=== PATIENT | female | born 1970 | race Caucasian/White ===

== ENCOUNTER 2016-11-14 11:20 | Emergency (ER) | payer SELFPAY ==
--- NOTE | 2016-11-14 11:50 | ER Document Report ---
ED Medical Screen (RME) - General Stated Complaint: COUGH,CONGESTION,BACK PAIN Notes: Patient is a 46-year-old female presents emergency Department complaining of nonproductive cough started Thursday. Now with back pain, chest pain, abdominal pain from coughing Patient is a tobacco user Denies any history of asthma. I have greeted and performed a rapid initial assessment of this patient. A comprehensive ED assessment and evaluation of the patient, analysis of test results and completion of the medical decision making process will be conducted by additional ED providers. - Related Data Allergies/Adverse Reactions: No Known Allergies Allergy (Verified 11/14/16 11:48) Past Medical History - Past Medical History Cardiac Medical History: Reports: Hx Hypertension Past Surgical History: Reports: Hx Bowel Surgery - upper and lower endoscopy 2012, Hx Hysterectomy Physical Exam - Vital signs Vitals: Temp Pulse Resp BP Pulse Ox 99.7 F 102 H 21 H 142/91 H 94 11/14/16 11:24 11/14/16 11:24 11/14/16 11:24 11/14/16 11:24 11/14/16 11:24 Course - Vital Signs Vital signs: Temp Pulse Resp BP Pulse Ox 99.7 F 102 H 21 H 142/91 H 94 11/14/16 11:24 11/14/16 11:24 11/14/16 11:24 11/14/16 11:24 11/14/16 11:24
[2016-11-14] MEDS ORDERED: IPRATROPIUM/ALBUTEROL 0.5-2.5 MG/3 ML AMPUL NEB ONE (11:51)
[2016-11-14] MEDS ORDERED: ACETAMINOPHEN 325 MG TABLET PO ONE (11:51)
--- NOTE | 2016-11-14 13:14 | ER Document Report ---
ED Respiratory Problem - General Chief Complaint: Cough Stated Complaint: COUGH,CONGESTION,BACK PAIN Time seen by provider: 13:12 Mode of Arrival: Ambulatory Information source: Patient - HPI Patient complains to provider of: Cough - pt with c/o cough productive of white sputum with occasional wheeze for the past for the past 1-2 days . Plus CP with cough. Pt continues to smoke. Denies fever - Related Data Allergies/Adverse Reactions: No Known Allergies Allergy (Verified 11/14/16 11:48) Past Medical History - General Information source: Patient - Social History Smoking Status: Current Every Day Smoker Cigarette use (# per day): Yes Chew tobacco use (# tins/day): Yes Smoking Education Provided: Yes Family History: None Patient has suicidal ideation: No Patient has homicidal ideation: No - Past Medical History Cardiac Medical History: Reports: Hx Hypertension Renal/ Medical History: Denies: Hx Peritoneal Dialysis Past Surgical History: Reports: Hx Bowel Surgery - upper and lower endoscopy 2012, Hx Hysterectomy, Hx Tonsillectomy - Immunizations Hx Diphtheria, Pertussis, Tetanus Vaccination: Yes Review of Systems - Review of Systems Constitutional: No symptoms reported Cardiovascular: Chest pain Respiratory: Cough Gastrointestinal: No symptoms reported Neurological/Psychological: No symptoms reported -: Yes All other systems reviewed and negative Physical Exam - Vital signs Vitals: Temp Pulse Resp BP Pulse Ox 99.7 F 102 H 21 H 142/91 H 94 11/14/16 11:24 11/14/16 11:24 11/14/16 11:24 11/14/16 11:24 11/14/16 11:24 - General General appearance: Appears well In distress: None - HEENT Head: Normocephalic Pharynx: Normal Neck: Normal - Respiratory Respiratory status: No respiratory distress Chest status: Nontender Breath sounds: Normal - Cardiovascular Rhythm: Regular Heart sounds: Normal auscultation Course - Re-evaluation Re-evalutation: 11/14/16 13:30 Pt. felt much better at time of d/c --expressed desire to go home - Vital Signs Vital signs: Temp Pulse Resp BP Pulse Ox 99.7 F 102 H 21 H 142/91 H 94 11/14/16 11:24 11/14/16 11:24 11/14/16 11:24 11/14/16 11:24 11/14/16 11:24 - Diagnostic Test Radiology reviewed: Reports reviewed - neg Discharge - Discharge Clinical Impression: Bronchitis Condition: Stable Disposition: HOME, SELF-CARE Additional Instructions: rest, take meds as prescribed, stop smoking, return if worse Prescriptions: Azithromycin [Zithromax Tri-Trung] 500 mg PO DAILY #1 pkg Referrals: MONTANA MA MD [ACTIVE STAFF] - Follow up as needed
[2016-11-14 13:57] VITALS: BP 138/89
== END 2016-11-14 13:45 | disposition home or self-care (01) ==
LOC: ER 11:20
DX: J40 Bronchitis, not specified as acute or chronic (principal); R05 Cough; R06.2 Wheezing; R07.9 Chest pain, unspecified; I10 Essential (primary) hypertension; F17.210 Nicotine dependence, cigarettes, uncomplicated; Z71.6 Tobacco abuse counseling
CPT/HCPCS: 94640; 99283; 71020; J7620

== ENCOUNTER 2017-05-11 01:49 | Emergency (ER) | payer SELFPAY ==
--- NOTE | 2017-05-11 03:17 | ER Document Report ---
ED General - General Chief Complaint: Back Pain Stated Complaint: FLANK PAIN Time Seen by Provider: 05/11/17 02:52 Notes: Patient is a 46-year-old female who comes emergency department for chief complaint of pain in her back on the left side, she states the area feels like a band that itches, hurts, and will not go away. This started several days ago. She denies injury to the area, she denies that it is worse with movement, she denies nausea, vomiting, fever, chills, dysuria, or any urinary symptoms. She denies history of the same. She has been taking ibuprofen. Only past medical history is hysterectomy, tonsillectomy, and when asked she does confirm that she did have chickenpox as a child. TRAVEL OUTSIDE OF THE [place] IN LAST 30 DAYS: No - Related Data Allergies/Adverse Reactions: No Known Allergies Allergy (Verified 11/14/16 11:48) Past Medical History - General Information source: Patient - Social History Smoking Status: Never Smoker Frequency of alcohol use: None Drug Abuse: None Lives with: Family Family History: None - Past Medical History Cardiac Medical History: Reports: Hx Hypertension Renal/ Medical History: Denies: Hx Peritoneal Dialysis Past Surgical History: Reports: Hx Bowel Surgery - upper and lower endoscopy 2012, Hx Hysterectomy, Hx Tonsillectomy - Immunizations Hx Diphtheria, Pertussis, Tetanus Vaccination: Yes Review of Systems - Review of Systems Constitutional: No symptoms reported EENT: No symptoms reported Cardiovascular: No symptoms reported Respiratory: No symptoms reported Gastrointestinal: No symptoms reported Genitourinary: See HPI Female Genitourinary: No symptoms reported Musculoskeletal: See HPI Skin: See HPI Hematologic/Lymphatic: No symptoms reported Neurological/Psychological: No symptoms reported Physical Exam - Vital signs Vitals: Resp 18 05/11/17 02:09 Interpretation: Normal - General General appearance: Appears well, Alert In distress: None - HEENT Head: Normocephalic, Atraumatic Eyes: Normal Pupils: PERRL - Respiratory Respiratory status: No respiratory distress Chest status: Nontender Breath sounds: Normal Chest palpation: Normal - Cardiovascular Rhythm: Regular. No: Tachycardia Heart sounds: Normal auscultation, S1 appreciated, S2 appreciated Murmur: No - Abdominal Inspection: Normal Distension: No distension Bowel sounds: Normal Tenderness: Nontender Organomegaly: No organomegaly - Back Back: Normal, Nontender. No: Tender - I do not appreciate any palpable tenderness - Extremities General upper extremity: Normal inspection, Nontender, Normal color, Normal ROM , Normal temperature General lower extremity: Normal inspection, Nontender, Normal color, Normal ROM , Normal temperature, Normal weight bearing. No: Opal's sign - Neurological Neuro grossly intact: Yes Cognition: Normal Orientation: AAOx4 Morgan Coma Scale Eye Opening: Spontaneous Morgan Coma Scale Verbal: Oriented [place] Coma Scale Motor: Obeys Commands Morgan Coma Scale Total: 15 Speech: Normal Motor strength normal: LUE, RUE, LLE, RLE Sensory: Normal - Psychological Associated symptoms: Normal affect, Normal mood - Skin Skin Temperature: Warm Skin Moisture: Dry Skin Color: Normal, Other - area in question does have a scattered mildly erythematous appearance Course - Re-evaluation Re-evalutation: Urine is negative. I do not appreciate any tenderness over the muscular areas of the back. Patient has mild erythema of the area in the distribution of the dermatome. Area is itchy and painful. Most suggestive of a shingles because of the symptoms. Patient does not have insurance, therefore she will be treated with acyclovir and Valtrex. Discussed possibilities, recommendations, follow-up, return precautions. Patient states understanding and agreement. - Vital Signs Vital signs: Temp Pulse Resp BP Pulse Ox 98.1 F 71 17 145/89 H 95 05/11/17 04:58 05/11/17 04:58 05/11/17 04:58 05/11/17 04:58 05/11/17 04:58 Discharge - Discharge Clinical Impression: Back pain Qualifiers: Back pain location: back pain in unspecified location Chronicity: acute Back pain laterality: left Qualified Code(s): M54.9 - Dorsalgia, unspecified Condition: Stable Disposition: HOME, SELF-CARE Additional Instructions: Your urine is unremarkable. Your examination and symptoms are most consistent with a early shingles outbreak. Recommend taking the medications as prescribed to treat this. If you take the pain medication (oral morphine), take an over the counter stool softener to avoid constipation. Follow-up with primary care. Return to emergency department for any concerning symptoms including fever, vomiting, etc. Prescriptions: Morphine Sulfate [Morphine Ir 15 Mg Tablet] 15 mg PO Q4HP PRN #12 tablet PRN Reason: Acyclovir [Acyclovir 400 mg Tablet] 2 tab PO ASDIR #70 tablet Prednisone 60 mg PO DAILY #15 tablet
[2017-05-11 04:05] LABS: APPEARANCE,URINE SLIGHTLY-CLOUDY; BILIRUBIN,URINE NEGATIVE (NEGATIVE); GLUCOSE, URINE NEGATIVE (NEGATIVE); KETONES,URINE NEGATIVE (NEGATIVE); LEUKOCYTE ESTERASE,URINE NEGATIVE (NEGATIVE); NITRITE,URINE NEGATIVE (NEGATIVE); PROTEIN,URINE NEGATIVE (NEGATIVE); URINE SPECIFIC GRAVITY 1.028; UROBILINOGEN,URINE NEGATIVE mg/dL (<2.0)
[2017-05-11] MEDS ORDERED: VALACYCLOVIR HCL 500 MG TABLET PO ONE (04:36)
[2017-05-11 05:39] VITALS: BP 145/89
== END 2017-05-11 04:58 | disposition home or self-care (01) ==
LOC: ER 01:49
DX: M54.9 Dorsalgia, unspecified (principal); R10.9 Unspecified abdominal pain
CPT/HCPCS: 81001; 99284

== ENCOUNTER 2017-12-02 15:32 | Emergency (ER) | payer SELFPAY ==
[2017-12-02 15:54] VITALS: BP 157/96
--- NOTE | 2017-12-02 16:10 | ER Document Report ---
HPI - HPI Pain Level: 2 Notes: Patient is a 47-year-old female with no significant past medical history who presents to the ED complaining of having a tick embedded in her skin at the posterior neck 2-1/2 days ago. Patient states that she was in the shower when she noticed him pulling out, but did not have her glasses so she let it go down the drain. Patient states that she has noticed some itching associated since then, but no pain. She has not noticed any bull's-eye appearance, purulence, abscess, or streaks. Patient states that otherwise she feels well. She denies any drug allergies. Patient states that she was out in the [place] that day, and did a full scan of her skin thereafter and did not find any other tics. She is still eating and drinking without difficulties. She is urinating normally and having normal bowel movements. Denies any drug allergies. Patient admits to smoking but denies IV drug use. Denies any history of MRSA. Denies any recent illness, headache, fever, neck pain, changes in vision/speech/ mentation/hearing, URI, sore throat, chest pain, palpitations, syncope, cough, shortness of breath, wheeze, dyspnea, abdominal pain, nausea/vomiting/diarrhea, urinary retention, dysuria, hematuria, loss of control of bowel or bladder, numbness/tingling, saddle anesthesia, muscle paralysis/weakness, or rash. - ROS Systems Reviewed and Negative: Yes All other systems reviewed and negative Past Medical History - Social History Smoking Status: Current Every Day Smoker Family History: None - Past Medical History Cardiac Medical History: Reports: Hx Hypertension Renal/ Medical History: Denies: Hx Peritoneal Dialysis Past Surgical History: Reports: Hx Bowel Surgery - upper and lower endoscopy 2012, Hx Hysterectomy, Hx Tonsillectomy - Immunizations Hx Diphtheria, Pertussis, Tetanus Vaccination: Yes Vertical Provider Document - CONSTITUTIONAL Agree With Documented VS: Yes Notes: PHYSICAL EXAMINATION: GENERAL: Well-appearing, well-nourished and in no acute distress. HEAD: Atraumatic, normocephalic. EYES: Pupils equal round and reactive to light, extraocular movements intact, sclera anicteric, conjunctiva are normal. ENT: EAC clear b/l. TM's intact b/l without erythema, fluid, or perforation. Nares patent and without discharge. oropharynx clear without exudates. No tonsilar hypertrophy or erythema. Moist mucous membranes. No sinus tenderness. NECK: Normal range of motion, supple without lymphadenopathy LUNGS: Breath sounds clear to auscultation bilaterally and equal. No wheezes rales or rhonchi. HEART: Regular rate and rhythm without murmurs, rubs, gallops. Musculoskeletal: FROM to passive/active. Strength 5+/5. Extremities: No cyanosis, clubbing, or edema b/l. Peripheral pulses 2+. Capillary refill less than 3 seconds. NEUROLOGICAL: Normal speech, normal gait. Normal sensory, motor exams PSYCH: Normal mood, normal affect. SKIN: posterior neck: small, mild site erythema with central scab where tick was removed. No EM, abscess, streaks, purulence. Non-tender and no induration. - INFECTION CONTROL TRAVEL OUTSIDE OF THE [place] IN LAST 30 DAYS: No - RESPIRATORY O2 Sat by Pulse Oximetry: 96 Course - Re-evaluation Re-evalutation: 12/02/17 16:13 Patient is an afebrile, well-hydrated, 47-year-old female who presents to the ED status post tick bite. Vitals are stable. PE is otherwise unremarkable. Patient is within the window prophylactic treatment. I will send her home with a prescription for doxycycline 200 mg to take once. Skin instructions reviewed for thereafter. Conservative measures for symptoms with close monitoring. Low suspicion for any active Lyme disease, [place] spotted fever, sepsis, meningitis, necrotizing fasciitis, deep abscess, or other systemic emergent condition at this time. Recheck with your PCM in 3-5 days. Return to the ED with any worsening/concerning symptoms otherwise as reviewed in discharge. Patient is in agreement. - Vital Signs Vital signs: Temp Pulse Resp BP Pulse Ox 98.8 F 70 16 157/96 H 96 12/02/17 15:52 12/02/17 15:52 12/02/17 15:52 12/02/17 15:52 12/02/17 15:52 Discharge - Discharge Clinical Impression: Tick bite Qualifiers: Encounter type: initial encounter Qualified Code(s): W57.XXXA - Bitten or stung by nonvenomous insect and other nonvenomous arthropods, initial encounter Condition: Stable Disposition: HOME, SELF-CARE Instructions: Tick Bites ([facility]) Additional Instructions: Keep the skin clean Wash with soap and water Tylenol/ibuprofen if needed Triple antibiotic ointment daily Take medication as directed Monitor for any worsening symptoms or development of a bull's eye rash/illness Recheck with your PCM in 3-5 days Return to the ED with any worsening symptoms and/or development of fever, headache, chest pain, palpitations, syncope, shortness of breath, trouble breathing, abdominal pain, n/v/d, abscess, purulent discharge, red streaks, worsening swelling, or other worsening symptoms that are concerning to you. Prescriptions: Doxycycline Hyclate 200 mg PO ONCE PRN #2 capsule PRN Reason: Forms: Elevated Blood Pressure, Smoking Cessation Education Referrals: MY COLEMAN DO [ACTIVE STAFF] - Follow up as needed
== END 2017-12-02 16:24 | disposition home or self-care (01) ==
LOC: ER 15:32
DX: S10.96XA Insect bite of unspecified part of neck, initial encounter (principal); W57.XXXA Bitten or stung by nonvenomous insect and other nonvenomous arthropods, initial encounter; F17.200 Nicotine dependence, unspecified, uncomplicated
CPT/HCPCS: 99281